=== PATIENT | male | born 1985 | race Hispanic/Latino ===

== ENCOUNTER 2020-04-10 06:55 | Day surgery (SDC) | payer MEDICAID ==
[~2020-04-10] VITALS: Ht 167.6 cm; Wt 161.0 kg
[2020-04-10] VITALS (8 sets, daily range): BP systolic 99–132; BP diastolic 59–91
[~2020-04-10 06:55] MED LIST: SODIUM CHLORIDE 0.9% 1000ML 1,000 ML IV ONE
[2020-04-10] MEDS ORDERED: PROPOFOL 10 MG/ML 20ML VIAL IV ONE (09:48)
[2020-04-10] MEDS ORDERED: MIDAZOLAM HCL 1 MG/ML 2ML VIAL ONE (09:48)
[2020-04-10] MEDS ORDERED: LIDOCAINE HCL 1% 20 ML VIAL ONE (09:48)
== END 2020-04-10 10:35 ==
LOC: DAH 06:55
PROVIDERS: ATTEND Surgery
DX: K21.00 Gastro-esophageal reflux disease with esophagitis, without bleeding (principal); Z20.828 Contact with and (suspected) exposure to other viral communicable diseases; K29.60 Other gastritis without bleeding; B96.81 Helicobacter pylori [H. pylori] as the cause of diseases classified elsewhere; E66.01 Morbid (severe) obesity due to excess calories; Z98.890 Other specified postprocedural states; Z90.3 Acquired absence of stomach [part of]; Z83.511 Family history of glaucoma; Z72.89 Other problems related to lifestyle; Z68.43 Body mass index [BMI] 50.0-59.9, adult; Z79.899 Other long term (current) drug therapy
CPT/HCPCS: 43239; A4215; A4221; A4222; A4223; A4606; A4620; A4663; C9803; J2250; J2704; J7030; U0003